=== PATIENT | female | born 1960 | race Caucasian/White ===

== ENCOUNTER 2021-10-12 10:58 | Emergency (ER) | payer BC ==
[2021-10-12 11:29] VITALS: BP 165/80; PULSE 101; TEMP 99; BMI 38.5
== END 2021-10-12 13:12 | disposition home or self-care (01) ==
LOC: FER 10:58
DX: R41.840 Attention and concentration deficit (principal); R41.3 Other amnesia
CPT/HCPCS: 70450-TC; 70486-TC; 99284-25

== ENCOUNTER 2024-06-13 10:23 | Emergency (ER) | payer BC ==
[2024-06-13 10:43] VITALS: BMI 34.2
[2024-06-13] MEDS ORDERED: ACETAMINOPHEN INJECTION 100 ML ONE (11:04)
[2024-06-13] MEDS ORDERED: ONDANSETRON 4 MG/2 ML VIAL ONE ×2 (11:04→12:19)
[2024-06-13] MEDS ORDERED: FAMOTIDINE 20 MG/50 ML IVPB 20 MG/50 ML MG IVPB ONE (11:04)
[2024-06-13] MEDS: ONDANSETRON 4 MG/2 ML VIAL IVPUSH ONE ×2 (11:05→12:22)
[2024-06-13] MEDS: SODIUM CHLORIDE 0.9% 500 ML INFUS.BAG IV ONE ×3 (11:05→13:17)
[2024-06-13 11:09] LABS: HEMATOCRIT 46.6 % (32.4-45.2); HEMOGLOBIN 15.2 G/dL (10.7-15.3); MCH 31.1 pg (25.7-33.7); MCHC 32.6 g/dl (32.0-36.0); MEAN CELL VOLUME 95.5 fl (80-96); MEAN PLT VOLUME 8.6 fl (7.5-11.1); PLATELET COUNT 176.3 10^3/uL (134-434); RBC 4.88 10^6/uL (3.60-5.2); RDW 13.7 % (11.6-15.6); WHITE BLOOD COUNT 9.4 10^3/uL (4.0-10.8)
[2024-06-13 11:10] LABS: PLATELET ESTIMATE ADEQUATE
[2024-06-13] MEDS: ACETAMINOPHEN 1000 MG/100 ML BAG IVPB ONE (11:10)
[2024-06-13] MEDS: FAMOTIDINE 20 MG/50 ML IVPB 20 MG/50 ML MG IVPB ONE (11:28)
[2024-06-13 11:30] LABS: ALBUMIN 3.6 g/dl (3.4-5.0); ALK PHOS 55 U/L (45-117); ANION GAP 11 mmol/L (4-13); BILIRUBIN,TOTAL 0.8 mg/dl (0.2-1); CALCIUM 9.1 mg/dl (8.5-10.1); CHLORIDE 101 mmol/L (98-107); CO2 25 mmol/L (21-32); CREATININE 0.8 mg/dl (0.6-1.3); GLUCOSE,RANDOM 136 mg/dl (74-106); SGOT/AST 30 U/L (15-37); SGPT/ALT 17 U/L (7-52); SODIUM 137 mmol/L (136-145); TOT PROT 6.4 g/dl (6.4-8.2)
[2024-06-13] MEDS ORDERED: MAG HYDROX/AL HYDROX/SIMETH 30 ML UNIT-DOSE CUP ONE (12:19)
[2024-06-13] MEDS: MAG HYDROX/AL HYDROX/SIMETH 30 ML UNIT-DOSE CUP PO ONE (12:22)
[2024-06-13 13:29] VITALS: BP 132/70; PULSE 82; RESP 16; TEMP 97.5
== END 2024-06-13 13:25 | disposition home or self-care (01) ==
LOC: FER 10:23
PROC: 3E033GC Introduction of Other Therapeutic Substance into Peripheral Vein, Percutaneous Approach (ICD-10-PCS; principal; 2024-06-13)
PROC: 3E033NZ Introduction of Analgesics, Hypnotics, Sedatives into Peripheral Vein, Percutaneous Approach (ICD-10-PCS; 2024-06-13)
PROC: 3E033GC Introduction of Other Therapeutic Substance into Peripheral Vein, Percutaneous Approach (ICD-10-PCS; 2024-06-13)
PROC: 3E033GC Introduction of Other Therapeutic Substance into Peripheral Vein, Percutaneous Approach (ICD-10-PCS; 2024-06-13)
DX: R11.2 Nausea with vomiting, unspecified (principal); R19.7 Diarrhea, unspecified; R53.83 Other fatigue; M79.10 Myalgia, unspecified site; R50.9 Fever, unspecified; B34.9 Viral infection, unspecified
CPT/HCPCS: 36415; 80053; 83690; 84484; 85027; 93005; 99284-25; J0131